=== PATIENT | female | born 1990 | race Hispanic/Latino ===

== ENCOUNTER 2018-09-06 10:27 | Emergency (ER) | payer OTHER ==
[2018-09-06 11:22] LABS: APPEARANCE,URINE Cloudy (CLEAR); BILIRUBIN,URINE Negative (NEGATIVE); COLOR,URINE Yellow (YELLOW); GLUCOSE, URINE (UA) Negative (NEGATIVE); KETONES,URINE Negative (NEGATIVE); LEUKOCYTE ESTERASE ,URINE Moderate (NEGATIVE); NITRATE,URINE Negative (NEGATIVE); OCCULT BLOOD,URINE Negative (NEGATIVE); PROTEIN,URINE Negative (NEGATIVE); UROBILINOGEN,URINE 0.2 mg/dL (0.2-1.0)
[2018-09-06 11:27] LABS: HCG,QUAL RESULT NEGATIVE (NEGATIVE)
[2018-09-06 11:31] LABS: RBC,URINE 0-1 /HPF (0-1)
[2018-09-06 11:32] LABS: BACTERIA,URINE Rare /HPF (None Seen); MUCUS,URINE Few LPF (None Seen); SQUAMOUS EPITHELIAL CELL,UR Few /HPF (0-2); WBC,URINE 51-100 /HPF (0-1)
[2018-09-06] MEDS ORDERED: METOPROLOL TARTRATE 25 MG TAB ONE (12:27)
== END 2018-09-06 12:46 | disposition home or self-care (01) ==
LOC: EDH 10:27
DX: N30.00 Acute cystitis without hematuria (principal); R03.0 Elevated blood-pressure reading, without diagnosis of hypertension; F41.1 Generalized anxiety disorder; Z98.890 Other specified postprocedural states; Z90.49 Acquired absence of other specified parts of digestive tract
CPT/HCPCS: 81001; 81025